=== PATIENT | male | born 1990 | race Caucasian/White ===

== ENCOUNTER 2021-04-29 13:58 | Emergency (ER) | payer MEDICAID ==
[~2021-04-29] VITALS: Ht 167.6 cm; Wt 72.6 kg
--- NOTE | 2021-04-29 14:05 | NUR ---
Patient triaged and placed in room 2. Placed on farm assistant.
--- NOTE | 2021-04-29 14:07 | NUR ---
Patient BIBA re ETOH withdrawal seizure. Pt sustained bitten tongue and abrasion to mid forehead. Pt now awake, alert and oriented x 3. Reporting "detoxing from Xanax and alcohol" but then not remembering much else. Patient sent here from [facility]. Seizure pads in place. Will continue to monitor.
[2021-04-29 14:12] VITALS: BP_SYST 158
--- NOTE | 2021-04-29 14:42 | NUR ---
Dr Lou at bedside to assess patient
[2021-04-29] MEDS ORDERED: NACL 0.9% 1,000 ML IV ONE (14:45)
[2021-04-29] MEDS ORDERED: levETIRAcetam 500 MG TABLET PO ONE (14:45)
--- NOTE | 2021-04-29 14:58 | NUR ---
Patient returned from CT scan via [facility]
[2021-04-29 15:49] LABS: BASOPHILS % (AUTO) 0.3 % (0.0-2.0); EOSINOPHILS % (AUTO) 0.3 % (0.0-4.0); HEMOGLOBIN 14.1 g/dL (14.0-18.0); LYMPHOCYTES # (AUTO) 0.8 K/uL (1.0-5.5); LYMPHOCYTES % (AUTO) 7.9 % (20.5-51.5); MEAN CORPUSCULAR HEMOGLOBIN 31 pg (27-31); MEAN CORPUSCULAR HGB CONC 34 % (32-36); MEAN CORPUSCULAR VOLUME 93 fL (79.0-98.0); MONOCYTES # (AUTO) 0.9 K/uL (0.0-1.0); MONOCYTES % (AUTO) 9.3 % (1.7-9.3); NEUTROPHILS # (AUTO) 8.1 K/uL (1.8-7.7); NEUTROPHILS % (AUTO) 82.2 % (40.0-70.0); PLATELET COUNT (AUTO) 234 K/uL (130-430); RED CELL DISTRIBUTION WIDTH 13.8 % (9.0-15.0); WHITE BLOOD COUNT (AUTO) 9.8 K/uL (4.8-10.8)
[2021-04-29 16:12] LABS: BARBITURATE, URINE NEGATIVE (NEG <=200); BENZODIAZEPINE, URINE POSITIVE (NEG <=150); CANNABINOID, URINE NEGATIVE (NEG <=50); COCAINE, URINE NEGATIVE (NEG <=150); METHAMPHETAMINES SCREEN,URINE NEGATIVE (NEG <=500); OPIATE, URINE NEGATIVE (NEG <=100); PHENCYCLIDINE SCREEN,URINE NEGATIVE (NEG <=25); UR TRICYCLIC ANTIDEPRESSANTS NEGATIVE (NEG <=300); URINE AMPHETAMINE NEGATIVE (NEG <=500); URINE METHADONE NEGATIVE (NEG <=200); URINE OXYCODONE SCREEN NEGATIVE (NEG <=100); URINE PROPOXYPHENE SCREEN NEGATIVE (NEG <=300)
[2021-04-29 16:18] LABS: ANION GAP 9 (5-15); CALCIUM 9.1 mg/dL (8.4-11.0); CHLORIDE 103 mmol/L (98-107); CREATININE 0.97 mg/dL (0.55-1.30); GLUCOSE 103 mg/dL (70-99); POTASSIUM 4.2 mmol/L (3.5-5.1); SODIUM SERUM 138 mmol/L (136-145); UREA NITROGEN, BLOOD 11 mg/dL (8-21)
[2021-04-29 16:23] LABS: ALANINE AMINOTRANSFERASE 239 U/L (12-78); ALBUMIN 3.9 g/dL (3.4-4.8); ASPARTATE AMINOTRANSFERASE 79 U/L (10-37); TOTAL BILIRUBIN 0.2 mg/dL (0.0-1.0)
[2021-04-29 16:29] LABS: ALCOHOL, BLOOD < 3 mg/dL (<10); GFR AFRICAN AMERICAN 117 mL/min (>90)
--- NOTE | 2021-04-29 16:37 | NUR ---
Patient resting in bed; in no acute distress. VSS. Awaiting lad/diagnostic results. Will continue to monitor.
[2021-04-29] MEDS ORDERED: LEVE500T9 PO (17:14)
--- NOTE | 2021-04-29 18:15 | NUR ---
Patient given written and verbal discharge instructions and verbalizes understanding. ER MD discussed with patient the results and treatment provided. Patient in stable condition. ID arm band removed. IV catheter removed intact and dressing applied, no active bleeding. Rx of Keppra given. Patient educated on pain management and to follow up with PMD. Pain scale 0/10. Opportunity for questions provided and answered. Medication side effect fact sheet provided.
[2021-04-29 18:56] VITALS: BP_SYST 116
== END 2021-04-29 18:56 | disposition home or self-care (01) ==
LOC: SED 13:58
DX: R56.9 Unspecified convulsions (principal); Z79.899 Other long term (current) drug therapy
CPT/HCPCS: 36415; 70450; 76376; 80053; 80307; 83605; 85025; 96360; 99284; G0482; J7030